=== PATIENT | female | born 1975 ===

== ENCOUNTER 2017-07-15 02:35 | Emergency (ER) | payer OTHER ==
[2017-07-15 02:58] VITALS: BP 143/95; PULSE 70; RESP 18; TEMP 98; O2SAT 100
[2017-07-15] MEDS ORDERED: Simethicone 40 mg/0.6 ml Liquid (30 ml) PO STA (03:00)
[2017-07-15] MEDS ORDERED: Sodium Chloride 0.9% 1,000 ML IV STA (03:00)
[2017-07-15] MEDS ORDERED: Alum-Mag Hydrox-Simethicone Susp (30 mL) PO STA (03:03)
--- NOTE | 2017-07-15 03:03 | ED PDOC ---
HPI: Abdomen Time Seen by Provider: 07/15/17 02:52 Chief Complaint (Nursing): Abdominal Pain Chief Complaint (Provider): abd pain History Per: Patient, Family (daughter at bedside is translating in gabonese for patient) Additional Complaint(s): 42 year old female with history of gastritis presents to ED with epigastric pain and nausea that started at 10 pm last night. No vomiting or diarrhea, no fever o chills. Patient states she feels bloated. She states pain does not radiate and she rates the pain as 5/10. No chest pain or difficulty breathing. Past Medical History Reviewed: Historical Data, Nursing Documentation, Vital Signs Vital Signs: Last Vital Signs Temp 98 F 07/15/17 02:56 Pulse 70 07/15/17 02:56 Resp 18 07/15/17 02:56 BP 143/95 H 07/15/17 02:56 Pulse Ox 100 07/15/17 03:57 - Medical History PMH: Gastritis - Surgical History Surgical History: No Surg Hx - Family History Family History: States: No Known Family Hx - Living Arrangements Living Arrangements: With Family - Social History Current smoker - smoking cessation education provided: No Alcohol: None Drugs: Denies - Home Medications Home Medications: Ambulatory Orders Medication Instructions Recorded Metoclopramide [Reglan] 10 mg PO TID #10 tab 06/19/16 Omeprazole [Omeprazole] 20 mg PO DAILY 06/19/16 Ranitidine HCl [Zantac] 300 mg PO DAILY 06/19/16 Famotidine [Pepcid] 20 mg PO BID #60 tab 07/15/17 Ondansetron [Zofran Odt] 4 mg PO ASDIR PRN #10 odt 07/15/17 - Allergies Allergies/Adverse Reactions: Allergies Allergy/AdvReac Type Severity Reaction Status Date / Time No Known Allergies Allergy Verified 06/19/16 09:30 Review of Systems ROS Statement: Except As Marked, All Systems Reviewed And Found Negative Constitutional: Negative for: Fever, Chills Cardiovascular: Negative for: Chest Pain Respiratory: Negative for: Cough, Shortness of Breath Gastrointestinal: Positive for: Nausea, Abdominal Pain (epigastric). Negative for: Vomiting Genitourinary Female: Negative for: Dysuria, Frequency Neurological: Negative for: Headache, Dizziness Physical Exam - Reviewed Nursing Documentation Reviewed: Yes Vital Signs Reviewed: Yes - Physical Exam Appears: Positive for: Well, Non-toxic, No Acute Distress Skin: Negative for: Rash Eye Exam: Positive for: Normal appearance Cardiovascular/Chest: Positive for: Regular Rate, Rhythm Respiratory: Positive for: Normal Breath Sounds Gastrointestinal/Abdominal: Positive for: Soft, Tenderness (slight epigastric tenderness, abdomen otherwise non-tender). Negative for: Distended, Guarding, Rebound Back: Negative for: L CVA Tenderness, R CVA Tenderness Extremity: Positive for: Normal ROM. Negative for: Pedal Edema Neurologic/Psych: Positive for: Alert, Oriented - Laboratory Results Result Diagrams: 07/15/17 03:14 07/15/17 03:14 - ECG O2 Sat by Pulse Oximetry: 100 Pulse Ox Interpretation: Normal Medical Decision Making Medical Decision Makin42 year old female with epigastric pain, history of gastritis. Abdominal exam is benign. Plan: Urine test Urine dip CBC CMP Lipase IVF IV zofran IV pepcid PO maalox Pain resolved after meds given. Patient aware of all diagnostic testing results , all questions answered. Rx zofran and pepcid given along with dietary instructions for gastritis. Patient was referred to clinic for follow up. She is aware she can RTED at any time if acutely worse. Disposition - Clinical Impression Clinical Impression: Gastritis - Patient ED Disposition Is Patient to be Admitted: No Counseled Patient/Family Regarding: Studies Performed, Diagnosis, Need For Followup, Rx Given - Disposition Referrals: [facility] [Outside] [facility] [Outside] Disposition: Routine/Home Disposition Time: 03:56 Condition: IMPROVED Additional Instructions: Take rx meds as directed. Follow dietary instructions. Follow up with clinic in 1-2 days or return any time if acutely worse. Prescriptions: Famotidine [Pepcid] 20 mg PO BID #60 tab Ondansetron [Zofran Odt] 4 mg PO ASDIR PRN #10 odt PRN Reason: Nausea/Vomiting Instructions: Gastritis (ED), Diet for Ulcers and Gastritis (ED) Forms: [employer] (Gambian) Print Language: CZECH Results - Lab Results Lab Results: 07/15/17 07/15/17 03:14 03:14 WBC 13.4 H D RBC 4.21 Hgb 12.3 Hct 36.0 MCV 85.5 MCH 29.2 MCHC 34.2 RDW 13.8 Plt Count 250 MPV 9.6 Neut % (Auto) 75.5 H Lymph % (Auto) 17.3 L [place] % (Auto) 6.5 Eos % (Auto) 0.5 Baso % (Auto) 0.2 Neut # 10.1 H Lymph # 2.3 [place] # 0.9 H Eos # 0.1 Baso # 0.0 Sodium 138 Potassium 3.6 Chloride 104 Carbon Dioxide 23 Anion Gap 15 BUN 18 H Creatinine 0.6 L Est GFR ( Amer) > 60 Est GFR (Non-Af Amer) > 60 Random Glucose 132 H Calcium 9.6 Total Bilirubin 0.5 AST 33 ALT 26 Alkaline Phosphatase 81 Total Protein 7.6 Albumin 4.3 Globulin 3.3 Albumin/Globulin Ratio 1.3 Lipase 136
[2017-07-15 03:21] LABS: BASO % 0.2 % (0.0-2.0); EOS # 0.1 K/uL (0.0-0.7); EOS % 0.5 % (0.0-4.0); LYMPH # 2.3 K/uL (1.0-4.3); LYMPH % 17.3 % (20.0-40.0); MEAN CELL VOLUME 85.5 fl (81.0-99.0); MEAN CORPUSCULAR HEMOGLOBIN 29.2 pg (27.0-31.0); MEAN CORPUSCULAR HGB CONC 34.2 g/dL (33.0-37.0); MEAN PLATELET VOLUME 9.6 fl (7.2-11.7); MONO # 0.9 K/uL (0.0-0.8); MONO % 6.5 % (0.0-10.0); NEUT # 10.1 K/uL (1.8-7.0); NEUT % 75.5 % (50.0-75.0); RED CELL DISTRIBUTION WIDTH 13.8 % (11.5-14.5); WHITE BLOOD COUNT 13.4 K/uL (4.8-10.8)
[2017-07-15 03:30] LABS: ALB/GLOB RATIO 1.3 (1.0-2.1); ALKALINE PHOSPHATASE 81 U/L (38-126); ALT/SGPT 26 U/L (9-52); AST/SGOT 33 U/L (14-36); BILIRUBIN,TOTAL 0.5 mg/dl (0.2-1.3); BLOOD UREA NITROGEN 18 mg/dl (7-17); CALCIUM 9.6 mg/dL (8.4-10.2); CARBON DIOXIDE 23 mmol/L (22-30); CHLORIDE 104 mmol/L (98-107); GFR AFRICAN-AMERICAN > 60; GLUCOSE,RANDOM 132 mg/dL (65-105); LIPASE 136 U/L (23-300); POTASSIUM 3.6 MMOL/L (3.6-5.0); SODIUM 138 mmol/l (132-148); TOTAL PROTEIN 7.6 G/DL (6.3-8.2)
[2017-07-15] MEDS ORDERED: Alum-Mag Hydrox-Simethicone Susp (30 mL) ONE (04:00)
== END 2017-07-15 04:15 | disposition home or self-care (01) ==
LOC: H.ER 02:35
DX: K29.70 Gastritis, unspecified, without bleeding (principal)
CPT/HCPCS: 80053; 81025; 83690; 85025; 96374; 99282; J1885; J2405; J7040

== ENCOUNTER 2017-10-13 03:02 | Emergency (ER) | payer OTHER ==
[2017-10-13 03:10] VITALS: BMI 28.3
[2017-10-13 03:13] VITALS: BP 150/99; PULSE 71; RESP 16; TEMP 98; O2SAT 100
[2017-10-13] MEDS ORDERED: Sodium Chloride 0.9% 1,000 ML IV STA (03:21)
--- NOTE | 2017-10-13 03:37 | ED PDOC ---
HPI: Abdomen Time Seen by Provider: 10/13/17 03:14 Chief Complaint (Nursing): Abdominal Pain Chief Complaint (Provider): Abdominal pain History Per: Patient History/Exam Limitations: no limitations Onset/Duration Of Symptoms: Hrs (4) Outside of [place] travel?: No Current Symptoms Are (Timing): Still Present Location Of Pain/Discomfort: RUQ, Epigastric Quality Of Discomfort: "Pain" Associated Symptoms: Nausea, Back Pain. denies: Vomiting Additional Complaint(s): 42yo female, with past medical history of gastritis, presents to ED for evaluation of abdominal pain, present for the past 4 hours. Patient reports pain is mostly in her right upper quadrant and epigastric region, radiates to her back and is associated with nausea. She denies any vomiting, diarrhea, fever , cough and shortness of breath. She offers no other medical complaints. Past Medical History Reviewed: Historical Data, Nursing Documentation, Vital Signs Vital Signs: Last Vital Signs Temp 98.0 F 10/13/17 03:10 Pulse 71 10/13/17 03:10 Resp 16 10/13/17 03:10 BP 150/99 H 10/13/17 03:10 Pulse Ox 100 10/13/17 05:14 - Medical History PMH: Gastritis - Surgical History Surgical History: No Surg Hx - Family History Family History: States: No Known Family Hx - Social History Current smoker - smoking cessation education provided: No Ex-Smoker (has not smoked in the last 12 months): No Alcohol: None Drugs: Denies - Home Medications Home Medications: Ambulatory Orders Medication Instructions Recorded Metoclopramide [Reglan] 10 mg PO TID #10 tab 06/19/16 Omeprazole [Omeprazole] 20 mg PO DAILY 06/19/16 Ranitidine HCl [Zantac] 300 mg PO DAILY 06/19/16 Famotidine [Pepcid] 20 mg PO BID #60 tab 07/15/17 Ondansetron [Zofran Odt] 4 mg PO ASDIR PRN #10 odt 07/15/17 Famotidine [Pepcid] 20 mg PO Q12 #14 tab 10/13/17 Ondansetron ODT [Zofran ODT] 4 mg PO Q6 PRN #16 odt 10/13/17 traMADol [Ultram] 50 mg PO Q6 PRN #12 tab 10/13/17 - Allergies Allergies/Adverse Reactions: Allergies Allergy/AdvReac Type Severity Reaction Status Date / Time No Known Allergies Allergy Verified 10/13/17 03:10 Review of Systems ROS Statement: Except As Marked, All Systems Reviewed And Found Negative Constitutional: Negative for: Fever Respiratory: Negative for: Cough, Shortness of Breath Gastrointestinal: Positive for: Nausea, Abdominal Pain. Negative for: Vomiting , Diarrhea Musculoskeletal: Positive for: Back Pain Physical Exam - Reviewed Nursing Documentation Reviewed: Yes Vital Signs Reviewed: Yes - Physical Exam Appears: Positive for: Uncomfortable Head Exam: Positive for: ATRAUMATIC, NORMAL INSPECTION, NORMOCEPHALIC Skin: Positive for: Normal Color Eye Exam: Positive for: Normal appearance Neck: Positive for: Supple Cardiovascular/Chest: Positive for: Regular Rate, Rhythm Respiratory: Positive for: Normal Breath Sounds. Negative for: Respiratory Distress Gastrointestinal/Abdominal: Positive for: Soft, Tenderness (right upper quadrant and epigastric tenderness) Back: Positive for: Normal Inspection Extremity: Positive for: Normal ROM Neurologic/Psych: Positive for: Alert, Oriented - Laboratory Results Result Diagrams: 10/13/17 03:34 10/13/17 03:34 - ECG O2 Sat by Pulse Oximetry: 100 Medical Decision Making Medical Decision Making: Time: 0315 Impression: 42yo female w/ abdominal pain in setting of known gastritis Plan: -- Pepcid -- Toradol -- Zofran -- IV Fluids -- Labs -- CT Abdomen w/ IV Contrast Reassess Time: 0511 CT Abdomen FINDINGS: Lower thorax: No acute findings. ABDOMEN: Liver: Unremarkable. No mass. Gallbladder and bile ducts: Gallbladder distention. Gallstone. No ductal dilation. Pancreas: No ductal dilation. No mass. Spleen: No splenomegaly. Adrenals: No mass. Kidneys and ureters: No mass. No hydronephrosis. Stomach and bowel: No definite mural thickening. No obstruction. Appendix: Normal caliber. No inflammation. PELVIS: Bladder: Unremarkable. Reproductive: 1.3 x 2.1 x 1.8 cm peripherally enhancing hypodensity with crenulated margins within LEFT ovary. ABDOMEN and PELVIS: Intraperitoneal space: No significant fluid collection. No free air. Bones/joints: No acute fracture. Soft tissues: Tiny umbilical hernia containing fat. Vasculature: Unremarkable. No aneurysm. Lymph nodes: No pathologically enlarged lymph nodes. IMPRESSION: 1. Gallbladder distention with cholelithiasis. Suggest ultrasound. 2. Involuting or ruptured LEFT ovarian follicle/cyst. 3. Incidental/non-acute findings are described above. Time: 512 Patient reports feeling much better and states she will follow up with PCP in 1- 2 days. Patient stable for discharge home. Scribe Attestation: Documented by Sindi Ramirez acting as a scribe for Myron Tilley MD. Provider Attestation: All medical record entries made by the Scribe were at my direction and personally dictated by me. I have reviewed the chart and agree that the record accurately reflects my personal performance of the history, physical exam, medical decision making, and the department course for this patient. I have also personally directed, reviewed, and agree with the discharge instructions and disposition. Disposition - Clinical Impression Clinical Impression: Cholelithiasis - Patient ED Disposition Is Patient to be Admitted: No - Disposition Referrals: [facility] [Outside] Disposition: Routine/Home Disposition Time: 05:14 Condition: STABLE Prescriptions: Famotidine [Pepcid] 20 mg PO Q12 #14 tab Ondansetron ODT [Zofran ODT] 4 mg PO Q6 PRN #16 odt PRN Reason: Nausea/Vomiting traMADol [Ultram] 50 mg PO Q6 PRN #12 tab PRN Reason: abdominal pain Instructions: Gallstones (ED), Low Fat Diet (DC) Forms: [employer] (Sami) Print Language: MALTESE
[2017-10-13 03:47] LABS: BASO # 0.1 K/uL (0.0-0.2); BASO % 0.4 % (0.0-2.0); EOS # 0.2 K/uL (0.0-0.7); EOS % 1.2 % (0.0-4.0); HEMATOCRIT 36.6 % (34.0-47.0); LYMPH % 15.2 % (20.0-40.0); MEAN CELL VOLUME 87.1 fl (81.0-99.0); MEAN CORPUSCULAR HEMOGLOBIN 28.5 pg (27.0-31.0); MEAN CORPUSCULAR HGB CONC 32.7 g/dL (33.0-37.0); MEAN PLATELET VOLUME 9.8 fl (7.2-11.7); MONO % 7.3 % (0.0-10.0); NEUT % 75.9 % (50.0-75.0); RED CELL DISTRIBUTION WIDTH 13.2 % (11.5-14.5); WHITE BLOOD COUNT 13.2 K/uL (4.8-10.8)
[2017-10-13 03:50] LABS: RBC URINE 2 /hpf (0-3); URINE BILIRUBIN NEGATIVE (NEGATIVE); URINE BLOOD NEGATIVE (NEGATIVE); URINE COLOR YELLOW (YELLOW); URINE GLUCOSE (UA) NEG (Normal); URINE KETONE NEGATIVE (NEGATIVE); URINE LEUKOCYTE ESTERASE NEG Leu/uL (Negative); URINE PROTEIN NEGATIVE (NEGATIVE); URINE UROBILINOGEN 0.2-1.0 mg/dL (0.2-1.0); WBC URINE 1 /hpf (0-5)
[2017-10-13 03:57] LABS: ALB/GLOB RATIO 1.2 (1.0-2.1); ALKALINE PHOSPHATASE 70 U/L (38-126); ALT/SGPT 32 U/L (9-52); AST/SGOT 17 U/L (14-36); BILIRUBIN,TOTAL 0.3 mg/dl (0.2-1.3); BLOOD UREA NITROGEN 19 mg/dl (7-17); CALCIUM 8.7 mg/dL (8.4-10.2); CARBON DIOXIDE 22 mmol/L (22-30); CHLORIDE 105 mmol/L (98-107); GFR AFRICAN-AMERICAN > 60; GLUCOSE,RANDOM 105 mg/dL (65-105); LIPASE 138 U/L (23-300); POTASSIUM 3.7 MMOL/L (3.6-5.0); SODIUM 141 mmol/l (132-148); TOTAL PROTEIN 7.6 G/DL (6.3-8.2)
[2017-10-13] MEDS ORDERED: Iohexol 300 100 ML IJ ONE (04:21)
[2017-10-13] MEDS ORDERED: Sodium Chloride 0.9% 50 ML IV ONE (04:22)
--- NOTE | 2017-10-13 05:05 | CT ---
EXAM: CT Abdomen and Pelvis With Intravenous Contrast CLINICAL HISTORY: 42 years old, female; Pain; Abdominal pain; Localized; Upper; Additional info: Ruq pain TECHNIQUE: Axial computed tomography images of the abdomen and pelvis with intravenous contrast. All CT scans at this facility use one or more dose reduction techniques, viz.: automated exposure control; ma/kV adjustment per patient size (including targeted exams where dose is matched to indication; i.e. head); or iterative reconstruction technique. Coronal and sagittal reformatted images were created and reviewed. CONTRAST: 90 mL of [id number] administered intravenously. COMPARISON: US - ABDOMEN COMPLETE 2016-07-15 08:56 FINDINGS: Lower thorax: No acute findings. ABDOMEN: Liver: Unremarkable. No mass. Gallbladder and bile ducts: Gallbladder distention. Gallstone. No ductal dilation. Pancreas: No ductal dilation. No mass. Spleen: No splenomegaly. Adrenals: No mass. Kidneys and ureters: No mass. No hydronephrosis. Stomach and bowel: No definite mural thickening. No obstruction. Appendix: Normal caliber. No inflammation. PELVIS: Bladder: Unremarkable. Reproductive: 1.3 x 2.1 x 1.8 cm peripherally enhancing hypodensity with crenulated margins within LEFT ovary. ABDOMEN and PELVIS: Intraperitoneal space: No significant fluid collection. No free air. Bones/joints: No acute fracture. Soft tissues: Tiny umbilical hernia containing fat. Vasculature: Unremarkable. No aneurysm. Lymph nodes: No pathologically enlarged lymph nodes. IMPRESSION: 1. Gallbladder distention with cholelithiasis. Suggest ultrasound. 2. Involuting or ruptured LEFT ovarian follicle/cyst. 3. Incidental/non-acute findings are described above.
== END 2017-10-13 05:28 | disposition home or self-care (01) ==
LOC: H.ER 03:02
DX: K80.20 Calculus of gallbladder without cholecystitis without obstruction (principal); K29.70 Gastritis, unspecified, without bleeding
CPT/HCPCS: 74177; 80053; 81003; 81025; 83690; 85025; 96374; 99282; J1885; J2405; J7040; Q9967

== ENCOUNTER 2018-03-10 02:41 | Emergency (ER) | payer OTHER ==
[2018-03-10 02:55] VITALS: BMI 29.2
[2018-03-10] MEDS ORDERED: Sodium Chloride 0.9% 1,000 ML IV STA (03:51)
--- NOTE | 2018-03-10 04:20 | ED PDOC ---
HPI: Abdomen Time Seen by Provider: 03/10/18 03:07 Chief Complaint (Nursing): Abdominal Pain Chief Complaint (Provider): Abdominal Pain History Per: Patient History/Exam Limitations: no limitations Onset/Duration Of Symptoms: Hrs Current Symptoms Are (Timing): Still Present Location Of Pain/Discomfort: RUQ, Epigastric, LUQ Associated Symptoms: Nausea, Diarrhea, Back Pain. denies: Vomiting Additional Complaint(s): Casandra Still is a 43 year old female with a past medical history of gastritis and gallstones, who is presenting to the ER with complaints of epigastric abdominal pain associated with right upper back pain, nausea, and 4 episodes of water diarrhea, onset around 8 pm yesterday. Patient reports that the pain worsened at midnight and states that she has had similar episodes in the past but has taken no medications for pain relief since yesterday. She states that she had a CT done in the past which showed that she had gallstones. Patient denies any vomiting or fevers and states she has not had an episode of diarrhea today but still feels nauseous. Patient offers no other medical complaints at this time. PMD: [facility] Past Medical History Reviewed: Historical Data, Nursing Documentation, Vital Signs Vital Signs: Last Vital Signs Temp 98.0 F 03/10/18 10:10 Pulse 69 03/10/18 10:10 Resp 18 03/10/18 10:10 BP 128/74 03/10/18 10:10 Pulse Ox 100 03/10/18 10:10 - Medical History PMH: Gastritis - Family History Family History: States: Unknown Family Hx - Home Medications Home Medications: Ambulatory Orders Medication Instructions Recorded Metoclopramide [Reglan] 10 mg PO TID #10 tab 06/19/16 Omeprazole [Omeprazole] 20 mg PO DAILY 06/19/16 Ranitidine HCl [Zantac] 300 mg PO DAILY 06/19/16 Famotidine [Pepcid] 20 mg PO BID #60 tab 07/15/17 Ondansetron [Zofran Odt] 4 mg PO ASDIR PRN #10 odt 07/15/17 Famotidine [Pepcid] 20 mg PO Q12 #14 tab 10/13/17 Ondansetron ODT [Zofran ODT] 4 mg PO Q6 PRN #16 odt 10/13/17 traMADol [Ultram] 50 mg PO Q6 PRN #12 tab 10/13/17 - Allergies Allergies/Adverse Reactions: Allergies Allergy/AdvReac Type Severity Reaction Status Date / Time No Known Allergies Allergy Verified 10/13/17 03:10 Review of Systems ROS Statement: Except As Marked, All Systems Reviewed And Found Negative Constitutional: Negative for: Fever Gastrointestinal: Positive for: Nausea, Abdominal Pain, Diarrhea. Negative for : Vomiting Musculoskeletal: Positive for: Back Pain Physical Exam - Reviewed Nursing Documentation Reviewed: Yes Vital Signs Reviewed: Yes - Physical Exam Appears: Positive for: Non-toxic, Uncomfortable Head Exam: Positive for: ATRAUMATIC, NORMAL INSPECTION, NORMOCEPHALIC Skin: Positive for: Normal Color, Warm, Dry Eye Exam: Positive for: EOMI, Normal appearance, PERRL ENT: Positive for: Normal ENT Inspection Neck: Positive for: Normal, Painless ROM, Supple Cardiovascular/Chest: Positive for: Regular Rate, Rhythm. Negative for: Murmur Respiratory: Positive for: Normal Breath Sounds. Negative for: Respiratory Distress Gastrointestinal/Abdominal: Positive for: Soft, Tenderness (epigastric, right and left upper quadrants). Negative for: Distended, Guarding, Rebound Back: Positive for: Normal Inspection. Negative for: L CVA Tenderness, R CVA Tenderness, Vertebral Tenderness Extremity: Positive for: Normal ROM. Negative for: Deformity, Swelling Neurologic/Psych: Positive for: Alert, Oriented. Negative for: Motor/Sensory Deficits - Laboratory Results Result Diagrams: 03/10/18 04:48 03/10/18 04:48 - ECG O2 Sat by Pulse Oximetry: 100 (RA) Pulse Ox Interpretation: Normal Medical Decision Making Medical Decision Making: Time: 3:51 Impression: Abdominal pain with nausea and diarrhea Differentials: acute cholecystitis, acute pancreatitis, colitis, small bowel obstruction Plan: --CMP --Lipase --ED Urine Dipstick --CBC --Morphine 4 mg IVP --IV Fluids --Zofran 8 mg PO --CT Abd/Pelvis Scribe Attestation: Documented by Lilia Addison, acting as a scribe for Bob Chandler MD. Provider Scribe Attestation: All medical record entries made by the Scribe were at my direction and personally dictated by me. I have reviewed the chart and agree that the record accurately reflects my personal performance of the history, physical exam, medical decision making, and the department course for this patient. I have also personally directed, reviewed, and agree with the discharge instructions and disposition. Disposition - Clinical Impression Clinical Impression: Abdominal discomfort - Patient ED Disposition Is Patient to be Admitted: Transfer of Care Counseled Patient/Family Regarding: Studies Performed, Diagnosis - Disposition Referrals: [facility]. [facility] [Outside] Disposition: Transfer of Care Disposition Time: 07:00 Condition: STABLE Instructions: Gallstones, Stomach Ache and Stomach Upset Print Language: NEPALI Patient Signed Over To: Samia Chavez Handoff Comments: Pending CT results
[2018-03-10 04:52] LABS: BASO % 0.3 % (0.0-2.0); EOS % 0.5 % (0.0-4.0); HEMOGLOBIN 11.3 g/dL (12.0-16.0); LYMPH # 1.1 K/uL (1.0-4.3); MEAN CELL VOLUME 83.6 fl (81.0-99.0); MEAN CORPUSCULAR HEMOGLOBIN 27.2 pg (27.0-31.0); MEAN CORPUSCULAR HGB CONC 32.5 g/dL (33.0-37.0); MEAN PLATELET VOLUME 9.9 fl (7.2-11.7); MONO # 0.7 K/uL (0.0-0.8); NEUT # 8.7 K/uL (1.8-7.0); NEUT % 82.2 % (50.0-75.0); RBC 4.15 Mil/uL (3.80-5.20); RED CELL DISTRIBUTION WIDTH 14.5 % (11.5-14.5); WHITE BLOOD COUNT 10.6 K/uL (4.8-10.8)
[2018-03-10 05:01] LABS: ALB/GLOB RATIO 1.2 (1.0-2.1); ALT/SGPT 31 U/L (9-52); AST/SGOT 20 U/L (14-36); BLOOD UREA NITROGEN 18 mg/dl (7-17); CALCIUM 8.5 mg/dL (8.4-10.2); GFR AFRICAN-AMERICAN > 60; GFR NON-AFRICAN AMERICAN > 60; LIPASE 122 U/L (23-300)
[2018-03-10] MEDS ORDERED: Iohexol 300 100 ML IJ ONE (05:40)
[2018-03-10] MEDS ORDERED: Sodium Chloride 0.9% 100 ML ONE (05:40)
--- NOTE | 2018-03-10 07:15 | CT ---
EXAM: CT Abdomen and Pelvis With Intravenous Contrast CLINICAL HISTORY: 43 years old, female; Pain; Abdominal pain; Epigastric; Additional info: Epigastric pain TECHNIQUE: Axial computed tomography images of the abdomen and pelvis with intravenous contrast. All CT scans at this facility use one or more dose reduction techniques, viz.: automated exposure control; ma/kV adjustment per patient size (including targeted exams where dose is matched to indication; i.e. head); or iterative reconstruction technique. Coronal and sagittal reformatted images were created and reviewed. CONTRAST: 95 mL of omnipaque 300 administered intravenously. COMPARISON: CT - ABD PELVIS IV CONTRAST ONLY 2017-10-13 04:30 FINDINGS: Lung bases: There is minimal bibasilar atelectasis. ABDOMEN: Liver: Unremarkable. No mass. Gallbladder and bile ducts: The gallbladder is mildly distended. Suspect partially calcified gallbladder neck stone. No ductal dilation. Pancreas: Unremarkable. No mass. No ductal dilation. Spleen: Unremarkable. No splenomegaly. Adrenals: Unremarkable. No mass. Kidneys and ureters: Unremarkable. No solid mass. No hydronephrosis. Stomach and bowel: Unremarkable. No obstruction. No mucosal thickening. Appendix: No findings to suggest acute appendicitis. Normal appendix. PELVIS: Bladder: Unremarkable. No mass. Reproductive: 2.2 cm right ovarian follicle. ABDOMEN and PELVIS: Intraperitoneal space: Unremarkable. No free air. No significant fluid collection. Bones/joints: No acute fracture. No dislocation. Soft tissues: Unremarkable. Vasculature: Unremarkable. No abdominal aortic aneurysm. Lymph nodes: Unremarkable. No enlarged lymph nodes. IMPRESSION: Mildly distended gallbladder and gallbladder neck stone. Similar findings were demonstrated on the prior study. Clinical correlation with laboratory values recommended to exclude acute cholecystitis. Right upper quadrant ultrasound could be obtained if indicated. 2.2 cm right ovarian cyst or follicle. No followup necessary.
--- NOTE | 2018-03-10 08:25 | ED PDOC ---
- Laboratory Results Result Diagrams: 03/10/18 04:48 03/10/18 04:48 - ECG O2 Sat by Pulse Oximetry: 97 - Progress Re-evaluation Time: 09:38 Condition: Re-examined Medical Decision Making Medical Decision Making: Time: 699 --Patient was endorsed to provider by Dr. Bob Chandler. Pending CT ABD/ pelvis results and re-eval. Time: 714 --CT ABD/pelvis FINDINGS: Lung bases: There is minimal bibasilar atelectasis. ABDOMEN: Liver: Unremarkable. No mass. Gallbladder and bile ducts: The gallbladder is mildly distended. Suspect partially calcified gallbladder neck stone. No ductal dilation. Pancreas: Unremarkable. No mass. No ductal dilation. Spleen: Unremarkable. No splenomegaly. Adrenals: Unremarkable. No mass. Kidneys and ureters: Unremarkable. No solid mass. No hydronephrosis. Stomach and bowel: Unremarkable. No obstruction. No mucosal thickening. Appendix: No findings to suggest acute appendicitis. Normal appendix. PELVIS: Bladder: Unremarkable. No mass. Reproductive: 2.2 cm right ovarian follicle. ABDOMEN and PELVIS: Intraperitoneal space: Unremarkable. No free air. No significant fluid collection. Bones/joints: No acute fracture. No dislocation. Soft tissues: Unremarkable. Vasculature: Unremarkable. No abdominal aortic aneurysm. Lymph nodes: Unremarkable. No enlarged lymph nodes. IMPRESSION: Mildly distended gallbladder and gallbladder neck stone. Similar findings were demonstrated on the prior study. Clinical correlation with laboratory values recommended to exclude acute cholecystitis. Right upper quadrant ultrasound could be obtained if indicated. 2.2 cm right ovarian cyst or follicle. No followup necessary. Scribe Attestation: Documented by Maria T Pandey, acting as a scribe for Samia Chavez MD. Provider Scribe Attestation: All medical record entries made by the Scribe were at my direction and personally dictated by me. I have reviewed the chart and agree that the record accurately reflects my personal performance of the history, physical exam, medical decision making, and the department course for this patient. I have also personally directed, reviewed, and agree with the discharge instructions and disposition. Patient states pain is resolved. Exam: mild epigastric and LUQ tenderness. RUQT mild and without talley's CT and labs reviewed. No acute findings. Disposition Doctor Will See Patient In The: Office Counseled Patient/Family Regarding: Diagnosis, Need For Followup - Clinical Impression Clinical Impression: Abdominal discomfort - POA Present On Arrival: None - Disposition Referrals: [facility] [Outside] Disposition: Routine/Home Disposition Time: 09:40 Condition: STABLE Instructions: Stomach Ache and Stomach Upset Forms: [employer] (Lao) Print Language: ICELANDIC
[2018-03-10 10:11] VITALS: BP 128/74; PULSE 69; RESP 18; TEMP 98; O2SAT 100
== END 2018-03-10 10:05 | disposition home or self-care (01) ==
LOC: H.ER 02:41
DX: R10.13 Epigastric pain (principal); K82.8 Other specified diseases of gallbladder; N83.291 Other ovarian cyst, right side
CPT/HCPCS: 74177; 80053; 81025; 83690; 85025; 96361; 96374; 99284; J2270; J7040; Q9967

== ENCOUNTER 2018-08-22 11:50 | Day surgery (SDC) | payer SELFPAY ==
[2018-08-21 14:10] VITALS: BMI 27.3
[2018-08-22 12:25] VITALS: RESP 18
[2018-08-22] MEDS ORDERED: Lidocaine 4% (Laryng-O-Jet) Kit MM ONE (13:20)
[2018-08-22] MEDS ORDERED: Rocuronium 10 mg/ml (5 ml) ONE (13:20)
[2018-08-22] MEDS ORDERED: Succinylcholine 200 mg/10 ml Inj IV ONE (13:20)
[2018-08-22] MEDS ORDERED: Propofol 10 mg/ml Inj (20 ML) ONE (13:20)
[2018-08-22] MEDS ORDERED: Dexamethasone 4 mg/1 ml ONE (13:25)
[2018-08-22] MEDS ORDERED: cefOXitin IV 1 gm in Dextrose 0 GM/0 ML BAG IVPB ONE (14:10)
[2018-08-22] MEDS ORDERED: Lactated Ringer's 1,000 ML IV ONE ×3 (14:20→17:11)
[2018-08-22] MEDS ORDERED: Midazolam 2 MG/2 ML VIAL ONE ×2 (14:22→19:34)
[2018-08-22] MEDS ORDERED: Neostigmine 1:1000 (1 mg/ml) Inj ONE (15:10)
[2018-08-22] MEDS ORDERED: Lactated Ringer's 1,000 ML IV SCH (15:45)
--- NOTE | 2018-08-22 15:46 | PCM.SURG1 ---
Surgeon's Initial Post Op Note - Surgeon's Notes Surgeon: Dr. Lewis Parks Recreation Coordinator: Dr. Henning PGY-4 Type of Anesthesia: General Endo Anesthesia Administered By: Dr. Morse Pre-Operative Diagnosis: Symptomatic cholelithiasis Operative Findings: 1 large gallstone Post-Operative Diagnosis: Symptomatic cholelithiasis Operation Performed: Laparoscopic cholecystectomy Specimen/Specimens Removed: gallbladder Estimated Blood Loss: EBL {In ML}: 5 Blood Products Given: N/A Drains Used: No Drains Post-Op Condition: Good Date of Surgery/Procedure: 08/22/18 Time of Surgery/Procedure: 15:46
--- NOTE | 2018-08-22 15:49 | CP.SDSHP ---
Same Day Surgery H & P - History Proposed Procedure: Laparoscopic cholecystectomy Pre-Op Diagnosis: Symptomatic cholelithiasis - Previous Medical/Surgical History Previous Surgical History: none - Allergies Allergies: Allergies No Known Allergies Allergy (Verified 08/22/18 12:35) - Physical Exam Vital Signs: Vital Signs 08/22/18 08/22/18 12:24 12:29 Temperature 98.3 F Pulse Rate 63 63 Respiratory 18 Rate Blood Pressure 132/78 O2 Sat by Pulse 100 Oximetry Mental Status: Alert & Oriented x3 Neuro: WNL Heart: WNL Lungs: WNL GI: WNL - {Optional Preform as Required} Abdomen: WNL - Impression Impression: Cholelithiasis Pt. Evaluated Today:Candidate for Anesthesia & Procedure: Yes Short Stay Discharge - Short Stay Discharge Admitting Diagnosis/Reason for Visit: K80.2 Disposition: HOME/ ROUTINE Referrals: Britta Larios MD [Primary Care Provider] - Instructions: Cholecystectomy (DC) Additional Instructions (Diet, Activity): Follow up with Dr. Lewis in her office in 1-2 weeks, call to make appointment Avoid heavy lifting for 4 weeks May resume regular diet and activity 48 hours after surgery, may remove brown band aids and shower Leave white steri strips in place, they will fall off on their own over time
[2018-08-22] MEDS ORDERED: Oxycodone/Acetaminophen 5/325 mg Tab PO PRN (17:20)
[2018-08-22] MEDS ORDERED: Oxycodone/Acetaminophen 5/325 mg Tab PO ONE (18:40)
[2018-08-22 19:56] VITALS: BP 128/70; PULSE 70; TEMP 98.7; O2SAT 97
--- NOTE | 2018-08-23 17:49 | OP ---
PROCEDURE DATE: 08/22/2018 SURGEON: Galileo Lewis MD HEALTH ADVISOR: Caitlin Henning DO ANESTHESIA: General. ANESTHESIOLOGIST: Tip Morse MD PREOPERATIVE DIAGNOSIS: Cholelithiasis. POSTOPERATIVE DIAGNOSIS: Cholelithiasis. PROCEDURE: Laparoscopic cholecystectomy. DESCRIPTION OF OPERATION: With the patient in the supine position under adequate general anesthesia, the abdomen was prepped and draped in the usual sterile manner. Veress needle puncture was performed at the umbilicus with insufflation to 15 cm water pressure of CO2 and a 10 mm laparoscopic trocar was inserted via an infraumbilical incision. Under direct vision, additional trocars were inserted in the epigastrium and right costal margin. The gallbladder was visualized. It was not acutely inflamed. The gallbladder fundus was grasped and elevated. The infundibular area was grasped and retracted laterally. The cystic duct was dissected and cleared down towards the junction with the common bile duct. In addition, the lateral peritoneal attachments were divided somewhat to allow full anterior and posterior visualization of the cystic duct and the cystic artery. The cystic duct was then triply clipped and divided. Anterior and posterior branches of the cystic artery were identified and dissected and each was triply clipped and divided, and the gallbladder was dissected free of the liver bed using the electrocautery. The liver bed was inspected for hemostasis and the dissection was completed. The gallbladder was placed in a specimen retrieval bag and removed via the umbilical port site. It was noted to contain a single moderately large ovoid gallstone. The right upper quadrant was again inspected for hemostasis and the pneumoperitoneum was released and the trocars were removed. The umbilical port site was closed with a [id number] fascial suture of 0 Vicryl. All incisions were closed with 4-0 Monocryl subcuticular sutures and Dermabond. The patient tolerated the procedure well and transferred to the recovery room in stable condition. Estimated blood loss for the procedure was 10 mL. Galileo Lewis MD
== END 2018-08-22 20:16 | disposition home or self-care (01) ==
LOC: H.OPSURG 11:50
PROVIDERS: ATTEND Specialist
DX: K80.20 Calculus of gallbladder without cholecystitis without obstruction (principal); K21.9 Gastro-esophageal reflux disease without esophagitis
CPT/HCPCS: 47562; 88304; J0330; J0690; J1100; J1885; J2001; J2250; J2405; J2704; J2710; J2765; J3010; J7030; J7120